=== PATIENT | male | born 1995 | race Caucasian/White ===

== ENCOUNTER 2016-10-17 00:03 | Emergency (ER) | payer OTHER, BC ==
--- NOTE | 2016-10-17 00:13 | ERNOTE ---
Upper Extremity HPI - General Extremities Pain Location: 3rd finger: left - laceration Time Seen by Provider: 10/17/16 00:12 Source: patient Exam Limitations: no limitations - Immun/Allergies/Home Medications Immunizations: IMMUNIZATION HX Immunizations Up to Date Yes History of Influenza Vaccine Yes Allergies/Adverse Reactions: Allergies Allergy/AdvReac Type Severity Reaction Status Date / Time No Known Allergies Allergy Verified 10/17/16 00:10 Home Medications: HOME MEDICATIONS NK [No Home Medication] 02/21/13 [Last Taken Unknown] - History of Present Illness Narrative: Was cutting glass a work and accidentally cut his left middle finger Occurred: just prior to arrival Location of Incident: work Severity: mild Method of Injury: Reports: incised Associated Symptoms: Denies: tingling, weakness, numbness distally Other Injuries: Reports: none Review of Systems - Review of Systems Constitutional: Present: no symptoms reported EYE: Present: no symptoms reported ENT: Present: no symptoms reported Respiratory: Present: no symptoms reported Cardiology: Present: no symptoms reported Gastrointestinal/Abdominal: Present: no symptoms reported Genitourinary: Present: no symptoms reported Musculoskeletal: Present: no symptoms reported Skin: Present: See HPI Neurological: Present: no symptoms reported Endocrine: Present: no symptoms reported Hematologic/Lymphatic: Present: no symptoms reported Psych: Present: no symptoms reported - Patient's Past Medical History Patient History - Medical: No pertinent hx Patient History - Cardiac/Respiratory: No pertinent hx Patient History - Cancer: No Hx of Cancer - Social History Living Situations: home Smoking Status: Never smoker Alcohol Use: none Drug Use: none - Immunizations Immunizations Up to Date: Yes History of Influenza Vaccine: Yes Physical Exam - Physical Exam General Appearance: Present: wd/wn, alert, no apparent distress Respiratory: Present: no respiratory distress, no accessory muscle use Extremity Exam: Present: normal range of motion, no edema Neurological Exam: Present: alert, oriented, normal mood/affect, no motor/ sensory deficits Skin Exam: Present: other - left middle finger 1.5 cm laceration on the palmar surface of the DIP joint ED Progress - Vital Signs Vital Signs: Vital Signs 10/17/16 00:06 Temperature 36.4 C L Pulse Rate 98 Respiratory 20 Rate Blood Pressure 156/90 O2 Sat by Pulse 97 Oximetry - Progress/Reassessment Chief Complaint: Upper Extremity Injury/Problem Progress:: Improved Procedures Left 3rd Digit Date and Time: LACERATION REPAIR of left middle finger palmar surface of PIP. Anesthesia: 1% Lidocaine I & D Prep: betadine prep Length of Repair/Wound (cm): 1.5 Wound's Depth/Shape: into subcutaneous, linear Wound Explored: to base, no foreign body Distal NVT: neuro/vasc intact, no tendon injury Wound Repaired With: sutures Suture Size/Type: 4-0, nylon Number of Sutures: 3 Layer Closure: Simple Estimated blood loss (ml): 20 Wound Dressing: sterile dressing applied Complications: Pt andrew procedure well Departure Clinical Impression: Laceration of finger of left hand Qualifiers: Encounter type: initial encounter Qualified Code(s): S61.219A - Laceration without foreign body of unspecified finger without damage to nail, initial encounter - Departure Disposition: Home Follow Up Needed Condition: Good Instructions: Laceration Care, Adult, [id number] Additional Instructions: Have sutures taken out in 7-10 days
[2016-10-17] MEDS ORDERED: LIDOCAINE HCL 20 ML VIAL ONE (00:14)
--- OUTSIDE RECORDS SUMMARY | 2016-10-17 00:39 | XMS REPORT | Continuity of Care Document ---
:1995 Author Organization [facility] ([facility]) Address [address] [place] [address] Phone [phone] Care Team Providers Name Role Phone Rm Iglesias Primary Care Provider [phone] Source Comments This disclosure is being made pursuant to the Care Everywhere program, applicable federal and state laws, and may not contain all informaitonavailable regarding this patient.[facility] ([facility]) Active Allergies and Adverse Reactions No Known Allergies Current Medications No known medications Active Problems Problem Noted Date Status post surgery 07/05/2015 Elbow sprain, ulnar collateral ligament 03/20/2015 Right elbow pain 11/18/2011 Social History Tobacco Use Types Packs/Day Years Used Date Never Smoker Smokeless Tobacco: Current User Tobacco Cessation:Counseling Given: Yes Comments: Last Filed Vital Signs Vital Sign Reading Time Taken Blood Pressure 124/68 03/20/2015 12:17 PM CDT Pulse 66 03/20/2015 6:46 AM CDT Temperature 36.4 C (97.5 F) 03/20/2015 11:45 AM CDT Respiratory Rate 16 03/20/2015 11:30 AM CDT Height 1.829 m (6' 0.01") 02/01/2015 2:47 PM CDT Weight 114.8 kg (253 lb 1.4 oz) 03/20/2015 6:46 AM CDT Body Mass Index 34.32 03/20/2015 6:46 AM CDT Oxygen Saturation 97% 03/20/2015 12:17 PM CDT Plan of Care Health Maintenance Due Date Last Done Comments Hepatitis B Vaccine (1 of 3 - Primary Series) 1996 HPV Vaccine (1 of 3 - Male 3 Dose Series) 2007 Tdap Vaccine 2007 Meningococcal Vaccine (1 of 1) 2012 Lipid Disorder Screening 2014 MMR Vaccine 2014 Td Vaccine 2014 Varicella Vaccine (1 of 2 - Adult - No Evidence of 2014 Immunity) Influenza Vaccine: Seasonal (#1) 03/18/2016 Results from Last 3 Months Not on file
[2016-10-17 01:22] VITALS: BP 132/68
== END 2016-10-17 01:21 | disposition home or self-care (01) ==
LOC: ER 00:03
PROC: 0JQK0ZZ Repair Left Hand Subcutaneous Tissue and Fascia, Open Approach (ICD-10-PCS; principal; 2016-10-17)
DX: S61.213A Laceration without foreign body of left middle finger without damage to nail, initial encounter (principal); X58.XXXA Exposure to other specified factors, initial encounter; Y93.89 Activity, other specified; Y99.0 Civilian activity done for income or pay

== ENCOUNTER 2017-01-18 21:54 | Inpatient (IN) | payer BC ==
[2017-01-18] MEDS ORDERED: KETOROLAC TROMETHAMINE 30 MG/ML VIAL ONE (22:04)
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
[2017-01-18] MEDS ORDERED: KETOROLAC TROMETHAMINE 30 MG/ML VIAL IV ONE (22:08)
--- OUTSIDE RECORDS SUMMARY | 2017-01-18 22:19 | XMS REPORT | Continuity of Care Document ---
:1995 Author Organization [facility] ([facility]) Address [address] [place] [address] Phone [phone] Care Team Providers Name Role Phone Rm Iglesias Primary Care Provider [phone] Source Comments This disclosure is being made pursuant to the Care Everywhere program, applicable federal and state laws, and may not contain all informaitonavailable regarding this patient.[facility] ([facility]) Active Allergies and Adverse Reactions No Known [...]
[2017-01-18] MEDS ORDERED: AMOX TR/POTASSIUM CLAVULANATE 875 MG TABLET PO ONE (23:08)
[2017-01-18] MEDS ORDERED: DIPHTH,PERTUSS(ACELL),TET VAC 0.5 ML VIAL IM ONE ×2 (23:09→23:10)
[2017-01-18] MEDS ORDERED: AMOX TR/POTASSIUM CLAVULANATE 875 MG TABLET ONE (23:09)
[2017-01-18] MEDS ORDERED: ceFAZolin SODIUM/DEXTROSE,ISO 2 GM/50 ML BAG IV ONE (23:29)
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
--- OUTSIDE RECORDS SUMMARY | 2017-01-19 00:42 | XMS REPORT | Continuity of Care Document ---
:1995 Author Organization [facility] ([facility]) Address [address] [place] [address] Phone [phone] Care Team Providers Name Role Phone Rm Iglesias Primary Care Provider [phone] Source Comments This disclosure is being made pursuant to the Care Everywhere program, applicable federal and state laws, and may not contain all informaitonavailable regarding this patient.[facility] ([facility]) Active Allergies and Adverse Reactions No Known [...]
[2017-01-19] MEDS ORDERED: MORPHINE SULFATE 2 MG/ML DISP.SYRIN IV PRN (00:47)
[2017-01-19] MEDS: NORMAL SALINE 1,000 ML IV PRN ×2 (01:15→07:55)
[2017-01-19] MEDS ORDERED: ceFAZolin SODIUM/DEXTROSE,ISO 2 GM/50 ML BAG IV PRN (07:42)
[2017-01-19] MEDS ORDERED: ceFAZolin SODIUM 2 GM in DEXTROSE 5 % IN WATER 100 ML IV SCH ×2 (08:00)
[2017-01-19] MEDS ORDERED: BUPIVACAINE HCL 50 ML VIAL IJ ONE ×2 (08:00)
[2017-01-19] MEDS ORDERED: RINGERS SOLUTION,LACTATED 1,000 ML IV ONE (08:30)
[2017-01-19] MEDS ORDERED: oxyCODONE HCL/ACETAMINOPHEN 1 TAB TABLET PO PRN (09:17)
[2017-01-19] MEDS ORDERED: PROMETHAZINE HCL 5 MG in DEXTROSE 5 % IN WATER 50 ML IV PRN ×2 (09:17)
[2017-01-19] MEDS ORDERED: diphenhydrAMINE HCL 50 MG/ML VIAL IV PRN (09:17)
[2017-01-19] MEDS ORDERED: MAG HYDROX/ALUMINUM HYD/SIMETH 30 ML UDC PO PRN (09:17)
[2017-01-19] MEDS ORDERED: ONDANSETRON HCL/PF 2 MG/ML VIAL IV PRN (09:17)
[2017-01-19] MEDS ORDERED: MAGNESIUM HYDROXIDE 30 ML UDC PO PRN (09:17)
[2017-01-19] MEDS ORDERED: ACETAMINOPHEN 500 MG TABLET PO PRN (09:17)
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
[2017-01-19] MEDS: ceFAZolin SODIUM 2 GM in DEXTROSE 5 % IN WATER 50 ML IV SCH ×4 (16:20→23:51)
[2017-01-19] MEDS ORDERED: SENNOSIDES/DOCUSATE SODIUM 1 TAB TABLET PO SCH (21:00)
[2017-01-19] MEDS: oxyCODONE HCL/ACETAMINOPHEN 1 TAB TABLET PO PRN (21:48)
[2017-01-20] MEDS: oxyCODONE HCL/ACETAMINOPHEN 1 TAB TABLET PO PRN ×2 (05:08→09:36)
[2017-01-20 07:14] VITALS: BP 123/86
[2017-01-20] MEDS: ceFAZolin SODIUM 2 GM in DEXTROSE 5 % IN WATER 50 ML IV SCH ×2 (08:57)
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
== END 2017-01-20 11:20 | disposition home or self-care (01) | DRG 909 ==
LOC: ER 21:54 → MS 01-19 00:38
PROVIDERS: ADMIT Orthopaedic Surgery; ATTEND Orthopaedic Surgery
PROC: 0Y6Q0Z3 Detachment at Left 1st Toe, Low, Open Approach (ICD-10-PCS; principal; 2017-01-19 07:09)
DX: S98.122A Partial traumatic amputation of left great toe, initial encounter (principal); W39.XXXA Discharge of firework, initial encounter; Y92.9 Unspecified place or not applicable